=== PATIENT | male | born 2000 | race Native Hawaiian/Other Pacific Islander ===

== ENCOUNTER 2022-11-24 03:39 | Emergency (ER) | payer OTHER ==
[~2022-11-24] VITALS: Ht 172.7 cm; Wt 59.0 kg
[2022-11-24 05:37] VITALS: BP 126/78; TEMP 98.1
== END 2022-11-24 05:37 | disposition home or self-care (01) ==
LOC: ED 03:39
DX: J06.9 Acute upper respiratory infection, unspecified (principal)
CPT/HCPCS: 96372; 99283; J1100

== ENCOUNTER 2023-03-09 16:20 | Emergency (ER) | payer OTHER ==
[~2023-03-09] VITALS: Ht 172.7 cm; Wt 63.5 kg
[2023-03-09 16:25] VITALS: BP 141/81; TEMP 98.2
[2023-03-09 16:38] LABS: PLATELET COUNT 365 K/uL (142-355)
[2023-03-09 16:47] LABS: POTASSIUM 3.6 mmol/L (3.6-5.2)
== END 2023-03-09 20:21 | disposition home or self-care (01) ==
LOC: ED 16:20
PROVIDERS: Family Medicine
DX: E86.0 Dehydration (principal); X30.XXXA Exposure to excessive natural heat, initial encounter
CPT/HCPCS: 36415; 80053; 81002; 82550; 84484; 85027; 93005; 96361; 96374; 99284; J2405